=== PATIENT | female | born 1945 | race Caucasian/White ===

== ENCOUNTER → 2024-10-28 11:19 | Outpatient (REF) | payer MEDICARE, SELFPAY | LOC: RAD 11:19 | PROVIDERS: ATTENDING PHYSICIAN Nurse Practitioner Acute Care; FAMILY PHYSICIAN Internal Medicine | DX: Z95.2 Presence of prosthetic heart valve (principal) | CPT/HCPCS: 71046 ==

== ENCOUNTER → 2024-12-03 11:26 | Outpatient (REF) | payer MEDICARE, SELFPAY ==
[2024-12-03 13:44] LABS: TSH 3.64 uIU/ml (0.47-4.68)
== END ==
LOC: REG 11:26
PROVIDERS: ATTENDING PHYSICIAN Internal Medicine Cardiovascular Disease; FAMILY PHYSICIAN Internal Medicine
DX: Z79.899 Other long term (current) drug therapy (principal)
CPT/HCPCS: 36415; 84443

== ENCOUNTER 2025-02-12 09:55 | Day surgery (SDC) | payer MEDICARE, SELFPAY ==
[2025-02-12 10:40] LABS: INR 3.12; PT 32.4 Sec (11.4-14.6)
--- NOTE | 2025-02-12 11:18 | ITS.CL.CARDI ---
[employer] - Cardioversion
Cardioversion
Procedure Report:
Date of Procedure: 02/12/2025
Procedure: Cardioversion
Indication: Symptomatic atrial fibrillation
Performing Physician: Arian Jaimes MD
Technique: The patient was brought to the holding area. Signed informed consent was obtained. A time out was called and performed. The patient was anesthetized by the anesthesia service. Anticoagulation status was reviewed and appropriate. R2 pads
were placed anteriorly and posteriorly. A (360) J synchronized biphasic shock restored normal sinus rhythm without significant bradycardia. There were no complications.
Conclusion: Uncomplicated cardioversion from atrial fibrillation to sinus rhythm.
Recommendation: Routine post cardioversion care. Continue buttermaker anticoagulation.
[2025-02-12 12:07] VITALS: BMI 23.9
== END 2025-02-12 11:50 | disposition home or self-care (01) ==
LOC: CATH 09:55
PROVIDERS: ATTENDING PHYSICIAN Internal Medicine Cardiovascular Disease
DX: I48.0 Paroxysmal atrial fibrillation (principal); Z79.01 Long term (current) use of anticoagulants; I10 Essential (primary) hypertension; E78.5 Hyperlipidemia, unspecified; J44.9 Chronic obstructive pulmonary disease, unspecified; I44.7 Left bundle-branch block, unspecified; I34.0 Nonrheumatic mitral (valve) insufficiency; Z79.899 Other long term (current) drug therapy
CPT/HCPCS: 85610; 92960; 93005